=== PATIENT | female | born 2000 | race Caucasian/White ===

== ENCOUNTER 2023-05-17 19:44 | Emergency (ER) | payer BC, SELFPAY ==
[2023-05-17 20:04] VITALS: BP 117/82; PULSE 105; RESP 20; TEMP 39.3; O2SAT 98; BMI 26.6
--- NOTE | 2023-05-17 20:28 | ED_ITS ---
HPI - General Adult General Chief complaint: Urogenital Problems, Female Stated complaint: poss uti,fever Time Seen by Provider: 05/17/23 20:03 History of Present Illness HPI narrative: This 23-year-old female comes in reporting generalized malaise with aches and pains and has some chapped lips. She arrives with a fever at 102.8? F. her pulse is also elevated at 105 per minute. She does not report any upper respiratory symptoms. She does not have cough or shortness of breath. She states that she has had some increased urine frequency but no pain when passing urine. She was not feeling so well over the last several days but developed a fever today. Related Data Home Medications Medication Instructions Recorded Confirmed pregabalin .ROUTE 05/17/23 sertraline 100 mg tablet (Zoloft) 100 mg PO DAILY 05/17/23 05/17/23 Allergies Allergy/AdvReac Type Severity Reaction Status Date / Time Penicillins Allergy Mild Hives Verified 05/17/23 20:03 Review of Systems Status of ROS: Reports: 10 or more systems reviewed and unremarkable except as noted in History and below Narrative: Constitutional: No weight gain or loss. Fever started today. Eyes: No discharge. No vision changes. HENT: No congestion, no sore throat, no ear pain. Cardiovascular: No chest pain, no palpitations. Respiratory: No shortness of breath, no wheezes, no cough. Gastrointestinal: No abdominal pain, no vomiting, no diarrhea. Genitourinary: No hematuria. Musculoskeletal: Normal range of motion. Skin: No rashes, no pruritis. Neurological: No dizziness, weakness, sensory change, speech change. Endo/Heme/Allergies: No bruising or bleeding. No polydipsia. Pysch: no suicidality, no anxiety, no insomnia. All other systems reviewed and are negative. PFSH PFSH Social History Do you use any of these nicotine containing products: None Non-prescribed substance use: denies use Exam Narrative: Exam Narrative: Constitutional: Well-developed, well-nourished. HEENT: Normocephalic, atraumatic. Neck: Normal range of motion. Nontender. Supple. Heart: Regular. No murmurs. Normal rate. Intact distal pulses. Lungs: Clear to auscultation. No chest discomfort. No wheezes, rhonchi, or rales. Abdomen: Normal bowel sounds. Nontender. No rebound tenderness. Genitalia: Deferred. Back: No midline tenderness. Normal range of motion. Extremities: Normal range of motion. No injury. Skin: Intact. No rash. Warm. No erythema or pallor. She has dry chapped lips. Neurologic: No altered sensation. No weakness. Alert and oriented. Psychiatric: No suicidality. No anxiety or depression. No insomnia. Nursing notes and vitals signs are reviewed. Const: Vital Signs, click to edit/add: Vital Signs - 24 hr 05/17/23 20:04 05/17/23 22:07 05/17/23 22:47 Temperature 102.8 F H 99.7 F H 99.7 F H Pulse Rate [Pulse Oximeter] 105 H 74 Respiratory Rate 20 16 Blood Pressure [Ri ght Upper Arm] 117/82 117/67 Pulse Oximetry 98 97 Oxygen Delivery Me thod Room Air Room Air 05/17/23 22:47 Temperature 99.7 F H Pulse Rate [Pulse Oximeter] Respiratory Rate Blood Pressure [Ri ght Upper Arm] Pulse Oximetry Oxygen Delivery Me thod Course Vital Signs Vital signs: Initial Vital Signs Temperature 102.8 F H 05/17/23 20:04 Temperature Source Temporal Artery Scan 05/17/23 20:04 Pulse Rate 105 H 05/17/23 20:04 Respiratory Rate 20 05/17/23 20:04 Blood Pressure 117/82 05/17/23 20:04 Blood Pressure Mean 93 05/17/23 20:04 Blood Pressure Position Sitting 05/17/23 20:04 Pulse Oximetry 98 05/17/23 20:04 Oxygen Delivery Method Room Air 05/17/23 20:04 Vital Signs Temperature 102.8 F H 05/17/23 20:04 Pulse Rate 105 H 05/17/23 20:04 Respiratory Rate 20 05/17/23 20:04 Blood Pressure 117/82 05/17/23 20:04 Pulse Oximetry 98 05/17/23 20:04 Oxygen Delivery Method Room Air 05/17/23 20:04 Temperature 99.7 F H 05/17/23 22:47 Pulse Rate 74 05/17/23 22:07 Respiratory Rate 16 05/17/23 22:07 Blood Pressure 117/67 05/17/23 22:07 Pulse Oximetry 97 05/17/23 22:07 Oxygen Delivery Method Room Air 05/17/23 22:07 Medications Administered Medications: Discontinued Medications Generic Name Dose Route Start Last Admin Trade Name Selvin PRN Reason Stop Dose Admin Acetaminophen 1,000 mg 05/17/23 20:26 05/17/23 20:50 Acetaminophen 500 Mg Tablet PO 05/17/23 20:27 1,000 mg ONCE ONE Administration Sodium Chloride 1,000 mls @ 1,000 mls/hr 05/17/23 20:30 05/17/23 22:06 0.9 % Sodium Chloride 1000 Ml IV 05/17/23 21:29 Infused .Q1H AFUA Infusion Ceftriaxone Sodium 1 gm/ 100 mls @ 200 mls/hr 05/17/23 21:40 05/17/23 22:34 Sodium Chloride IVPB 05/17/23 21:41 Infused ONCE ONE Infusion Ketorolac Tromethamine 15 mg 05/17/23 20:26 05/17/23 20:51 Ketorolac 30 Mg/Ml Inj IVP 05/17/23 20:27 15 mg ONCE ONE Administration Medical Decision Making MDM Narrative Medical decision making narrative: This patient comes in with fever and generalized malaise. She also has mild tachycardia. She is tripping triggers for evaluation for possible sepsis. An IV was established where she did receive a total of 2 L of normal saline. Lactate level returns in normal range. Additionally her white count is in normal range. Actually her blood and urine all are reassuring and not indicating what her fever is related to. After blood cultures are acquired the patient did receive an IV dose of Rocephin 1000 mg. She states that she is feeling much better. She also did receive Tylenol 1000 mg. She is okay to be discharged home and received a prescription for Keflex. I advised her to use [id number] medicines also as needed and directed. Lab Data Labs: Lab Results 05/17/23 Range/Units 20:30 WBC 8.14 (4.50-11.00) K/uL RBC 4.64 (4.00-5.20) m/uL Hgb 13.6 (12.0-16.0) gm/dL Hct 40.2 (33.0-51.0) % MCV 87 (80-100) fL MCH 29 (26-34) pg MCHC 34 (32-36) gm/dL RDW Coeff of Sam 12.0 (11.5-15.5) % Plt Count 260 (140-440) K/uL Neut % (Auto) 79.3 H (42.0-72.0) % Lymph % (Auto) 10.0 L (20-44) % [place] % (Auto) 10.7 (0.0-11.0) % Eos % (Auto) 0.0 (0.0-7.0) % Baso % (Auto) 0.0 (0.0-3.0) % Neut # (Auto) 6.50 (1.7-7.0) K/uL Lymph # (Auto) 0.80 L (0.90-2.90) K/uL [place] # (Auto) 0.90 (0.00-0.90) K/UL Eos # (Auto) 0.00 (0.00-0.50) K/uL Baso # (Auto) 0.00 (0.00-0.30) K/uL Abs Immat Gran (auto) 0.00 (0.00-0.30) K/uL Imm/Tot Granulo (auto) 0.0 % Sodium 136 (135-149) mmol/L Potassium 4.0 (3.6-5.1) mmol/L Chloride 102 (96-114) mmol/L Carbon Dioxide 25 (20-32) mmol/L Anion Gap 9 (7-15) mEq/L BUN 12 (5-24) mg/dL Creatinine 0.6 (0.5-1.5) mg/dL Estimated Creat Clear 147.10 Estimated GFR 129 ml/min Glucose 113 (60-115) mg/dL Lactate 0.9 (0.5-1.9) mmol/L Calcium 9.4 (8.4-10.6) mg/dL C-Reactive Protein 1.9 H (0.5-1.0) mg/dL Urine Color Yellow (Yellow) Urine Appearance Clear (Clear) Urine pH 8.5 (5.0-8.5) Ur Specific [place] 1.020 (1.000-1.030) Urine Protein Negative (Negative) Urine Glucose (UA) Negative (Negative) Urine Ketones Negative (Negative) Urine Blood Trace-intact A (Negative) Urine Nitrite Negative (Negative) Urine Bilirubin Negative (Negative) Urine Urobilinogen 0.2 (0.2-1.0) Ur Leukocyte Esterase Trace A (Negative) Urine RBC 2-5 A (0-2) Urine WBC 2-5 (0-5) Ur Squamous Epith Cells Few (None-Few) Urine Bacteria None (None) SARS-CoV-2 (PCR) Negative SARS-CoV-2 (Negative) Influenza Type A (PCR) Negative PCR FLU A (Negative) Influenza Type B (PCR) Negative PCR FLU B (Negative) RSV (PCR) Negative PCR RSV (Negative) Discharge Plan Discharge Clinical Impression: Fever Patient Disposition: Home, Self-Care Condition: Improved Additional Instructions: Take medication as prescribed. Follow up with MD or return if worsening. Use [id number] medicines also as needed and directed. Prescriptions: No Action sertraline [Zoloft] 100 mg tablet 100 mg PO DAILY pregabalin .ROUTE Follow Up/Referrals: Provider,Not a Local [Primary Care Provider] - Stand Alone Forms: [employer] Info Instructions
[2023-05-17 20:48] LABS: Appearance Urine Clear (Clear); Bilirubin Urine Negative (Negative); Blood Urine Trace-intact (Negative); Color Urine Yellow (Yellow); Glucose Urine Negative (Negative); Ketones Urine Negative (Negative); Lactate* 0.9 mmol/L (0.5-1.9); Leukocyte Esterase Urine Trace (Negative); Nitrite Urine Negative (Negative); Protein Urine Negative (Negative); Urobilinogen Urine 0.2 (0.2-1.0); pH Urine 8.5 (5.0-8.5)
[2023-05-17 20:49] LABS: Hematocrit 40.2 % (33.0-51.0); Hemoglobin* 13.6 gm/dL (12.0-16.0); Mean Corpuscular HGB Conc 34 gm/dL (32-36); Mean Corpuscular Hemoglobin 29 pg (26-34); Mean Corpuscular Volume 87 fL (80-100); Monocytes Percent Auto 10.7 % (0.0-11.0); Neutrophils Percent Auto 79.3 % (42.0-72.0); Platelet Count* 260 K/uL (140-440); Red Blood Count 4.64 m/uL (4.00-5.20); Slide Review Reflex No; White Blood Count* 8.14 K/uL (4.50-11.00)
[2023-05-17] MEDS: ACETAMINOPHEN 500 MG TABLET 1000 MG PO (20:50)
[2023-05-17] MEDS: KETOROLAC 30 MG/ML inj 15 MG IVP (20:51)
[2023-05-17] MEDS: 0.9 % SODIUM CHLORIDE 1000 ml 1,000 ML IV (20:51)
[2023-05-17 20:59] LABS: Squamous Epithelial Cell Urine Few (None-Few)
[2023-05-17 21:04] LABS: Chloride* 102 mmol/L (96-114); Sodium* 136 mmol/L (135-149)
[2023-05-17 21:07] LABS: Anion Gap 9 mEq/L (7-15); Blood Urea Nitrogen* 12 mg/dL (5-24); Carbon Dioxide* 25 mmol/L (20-32); Creatinine* 0.6 mg/dL (0.5-1.5); Estimated Glomerular Filt Rate 129 ml/min
[2023-05-17 21:08] LABS: Calcium* 9.4 mg/dL (8.4-10.6); Glucose* 113 mg/dL (60-115)
[2023-05-17 21:10] LABS: C Reactive Protein* 1.9 mg/dL (0.5-1.0)
[2023-05-17 21:32] LABS: PCR FLU A Negative PCR FLU A (Negative); PCR FLU B Negative PCR FLU B (Negative); PCR RSV Negative PCR RSV (Negative); SARS PCR* Negative SARS-CoV-2 (Negative)
[2023-05-17] MEDS: cefTRIAXone 1 GM in 0.9 % SODIUM CHLORIDE Mini-bag 100 ML IVPB (21:44)
[2023-05-17 22:07] VITALS: BP 117/67; PULSE 74; RESP 16; TEMP 37.6; O2SAT 97
[2023-05-17 22:47] VITALS: TEMP 37.6
== END 2023-05-17 23:19 | disposition home or self-care (01) ==
PROVIDERS: Emergency Provider Emergency Medicine Emergency Medical Services
DX: R50.9 Fever, unspecified (principal)
CPT/HCPCS: 36415; 80048; 81001; 83605; 85025; 86140; 87040; 87086; 87631; 96365; 96375; 99284; A9270; J0696; J1885; J7030

== ENCOUNTER 2024-05-22 11:47 | Emergency (ER) | payer BC, SELFPAY ==
--- OUTSIDE RECORDS SUMMARY | 2024-05-22 11:48 | XMS_ITS | Clinical Summary ---
Author Organization [facility] Address [address] [place] [id number] Care Team Providers Care Stunt Woman Name Role Phone Pcp, No Primary Care Provider Unavailabl e Allergies Active Allergy Reactions Criticality Noted Date Comments Penicillins Hives 04/24/2024 Medications sertraline (ZOLOFT) 100 mg tablet 200 mg. 2 Active dextroamphetami ne sulfate (DEXEDRINE; DEXTROSTAT; ZENZEDI) 5 mg tablet 7.5 mg. 2 Active albuterol HFA (PRO-AIR; VENTOLIN; PROVENTIL) 90 mcg/actuation inhaler 2 Active Flovent HFA 110 mcg/actuation inhaler 1 04/24/19 25 Discontinue d(*Medicati on adjustment) doxycycline monohydrate 100 mg tabletIndicatio ns:Acute otitis media, bilateral Take 1 Tablet (100 mg) by mouth two times daily for 7 days. 14 Tablet 5 05/01/19 25 predniSONE (DELTASONE) 20 mg tabletIndicatio ns:Acute non-recurrent frontal sinusitis,Acute otitis media, bilateral Take 2 Tablets (40 mg) by mouth once daily for 5 days. 10 Tablet 5 04/29/19 25 Flovent HFA 110 mcg/actuation inhalerIndicati ons:Acute non-recurrent frontal sinusitis Inhale 2 Puffs by mouth two times daily. 12 g 5 04/24/19 25 Discontinue d(*Med complete/Re gimen complete/Le ariana of care change) fluticasone (50 mcg per actuation) nasal solution (FLONASE)Indica tions:Acute non-recurrent frontal sinusitis Inhale 2 Sprays in both nostrils once daily for 10 days. 16 g 5 05/04/19 25 Active Problems No known active problems Encounters Date Type Department Care Team Description 05/12/2024 Patient Outreach [facility] Care Management - Care Management Navigation/[facility] [address] [place] [address] Daniel [facility] 04/24/2024 2:00 PM TANK INSULATOR RUBBER Office Visit [facility] [address] [place] [address] Rafia Yepez NP Ear Problem; Sinus Problem; Conjunctivitis 04/24/2024 Travel from Last 3 Months Immunizations Immunization Administration Dates Next Due Influenza, IIV4 12/30/2020 Influenza, IIV4 (=>6mos) MDV 11/23/2019 Social History Tobacco Use Types Packs/Day Years Used Date Smoking Tobacco: Never Smokeless Tobacco: Never Tobacco Cessation:Counseling Given: Yes Alcohol Use Standard Drinks/Week Comments Yes 0 (1 standard drink = 0.6 oz pur e alcohol) social use Social Connections Answer Date Recorded Do you often feel lonely or isolated from those around you? 0 04/24/2024 Financial Resource Strain Answer Date R ecorded Difficulty of Paying Living Expenses Not on file 04/24/2024 Difficulty of Paying Living Expenses 3 04/24/2024 Food Insecurity Answer Date Recorded Do you worry your food will run out before you are able to buy more? 2 04/24/2024 Transportation Needs Answer Date Record ed Does lack of transportation keep you from medica l appointments? 1 04/24/2024 Does lack of transportation keep you from work, meetings or getting things that you need? 1 04/24/2024 Housing Stability Answer Date Recorded What is your housing situation today? 1 04/24/2024 Utilities Answer Date Recorded Do you have trouble paying f or utilities (for example, heat, electricity, water, phone)? 2 04/24/2024 Comments No Sex and Gender Information Value Date Recorded Sex Assigned at Not on file Legal Sex Female 10:27 AM CDT Gender Identity Not on file Sexual Orientation Not on file Obstetrics History Para Term AB IAB SAB Ectopic Multiple Livin g Live Births 0 0 0 0 0 0 0 0 0 0 0 Last Filed Vital Signs Vital Sign Reading Time Taken Comments Blood Pressure 111/59 04/24/2024 3:21 PM TANK INSULATOR RUBBER Pulse 85 04/24/2024 3:21 PM TANK INSULATOR RUBBER Temperature 36.9 C (98.5 F) 04/24/2024 3:21 PM TANK INSULATOR RUBBER Respiratory Rate 18 04/24/2024 3:21 PM TANK INSULATOR RUBBER Oxygen Saturation 98% 04/24/2024 3:21 PM TANK INSULATOR RUBBER Inhaled Oxygen Concentration - - Weight 77.4 kg (170 lb 9.6 oz) 04/24/2024 3:21 P M TANK INSULATOR RUBBER Height - - Body Mass Index - - Plan of Treatment Health Maintenance Due Date Last Done Comments Tdap 02/04/2011 Depression screening for age 12+ 2012 HPV series for age 9-26 (1 - 3-dose series) 02/04/2015 BMI (ht and wt on same day) for age 18+ 02/04/2018 Hepatitis C screening for ag e 18-79 02/04/2018 Tetanus booster 2020 Pap test for age 21-65 02/04/2021 Chlamydia for age 16-24 08/01/2022 08/01/2021 COVID-19 vaccine series ( season) 2023 06/29/2020, 06/08/2020 Influenza Vaccine (#1) 2023 , 11/23/2019 HIV for age 15-65 Completed 08/01/2021 Pneumococcal series for age 6-49 Aged Out No longer eligible b ased on patient's age to complete this topic Procedures Procedure Name Priority Date/Time Associated Diagnosis Comments GC CHLAMYDIA TRACH PROBE Routine 08/01/2021 11:24 AM CDT Screening examination for STD (sexually transmitted disease) ANTI HIV 1/2 Routine 08/01/2021 11:20 AM CDT Screening examination for STD (sexually transmitted disease) from Last 3 Months or Most Recently Relevant to Health Maintenance Results * GC CHLAMYDIA - Urine (08/01/2021 11:24 AM CDT) CHLAMYDIA PROBE Negative 7:26 PM CDT [facility] N GONORRHOEAE PROBE Negative 08/01/2021 7:26 PM CDT [facility] Other URINE SPECIMEN / Unknown Non-Blood / Unknown 08/01/2021 11:24 AM CDT 08/01/2021 11:24 AM CDT us Adejunie Monahan DO MICROBIOLOGY Final Result [facility] [address] [place] [address], [place] * ANTI HIV 1/2 (08/01/2021 11:20 AM CDT) HIV-1/HIV-2 ANTIBODY Non-Reacti ve Non-Reacti ve 08/01/2021 4:56 PM CDT [facility] Comment:HIV-1 p24 and HIV-1/ HIV-2 Ab not detected. Blood BLOOD SPECIMEN / Unknown Venipuncture / Unknown 08/01/2021 11:20 AM CDT 08/01/2021 11:21 AM CDT us Di Monahan DO SEND OUTS Final Result [facility] [address] [place] [address], [place] from Last 3 Months or Most Recently Relevant to Health Maintenance Care Teams Stunt Woman Relationship Specialty Start Date End Date Pcp, No . PCP - General 07/23/21
[2024-05-22 12:01] VITALS: BP 115/74; PULSE 89; RESP 20; TEMP 37.3; O2SAT 100; BMI 26.6
--- NOTE | 2024-05-22 12:06 | ED.GENADULT ---
HPI - General Adult General Chief complaint: Nausea/Vomiting Stated complaint: nausea/diarrhea Time Seen by Provider: 05/22/24 11:48 History of Present Illness HPI narrative: Patient is a 24-year-old woman who comes in today with 12 hour history of nausea vomiting diarrhea. She has had no fevers no chills no night sweats no chest pain no shortness of breath. She has had no recent travel and no sick contacts. She has had no blood in her vomitus or stool. She has had no rashes no bruising no stiff neck no headache. She has been unable to maintain her fluid intake and comes in today feeling dehydrated. Related Data Home Medications ?Medication ?Instructions ?Recorded ?Confirmed pregabalin PO 05/17/23 sertraline 100 mg tablet (Zoloft) 100 mg PO DAILY 05/17/23 05/22/24 albuterol sulfate 90 mcg/actuation inhalation 05/22/24 aerosol inhaler dextroamphetamine-amphetamine 10 1 tab PO 3XD 05/22/24 05/22/24 mg tablet Allergies Allergy/AdvReac Type Severity Reaction Status Date / Time Penicillins Allergy Mild Hives Verified 05/22/24 11:56 Review of Systems Status of ROS: Reports: 10 or more systems reviewed and unremarkable except as noted in History and [facility] Social History Do you use any of these nicotine containing products: None Non-prescribed substance use: marijuana (any form) Exam Narrative: Exam Narrative: EXAM GENERAL: Patient appears comfortable and well. EYES: No scleral icterus. LYMPH: No supraclavicular or cervical lymphadenopathy. SKIN: Visible skin seen during exam normal or with benign process only. EXT: No dependent lower extremity pedal edema. HEART: Regular rate and rhythm with no murmurs, rubs, or gallops. LUNGS: Clear to auscultation bilaterally with no crackles or wheezes. ABD: Soft, non tender, non distended. PSYCH: Good eye contact, speech is not pressured. Const: Vital Signs, click to edit/add: Vital Signs - 24 hr 05/22/24 12:01 Temperature 99.1 F Pulse Rate [Pulse Oximeter] 89 Respiratory Rate 20 Blood Pressure [Ri ght Upper Arm] 115/74 Pulse Oximetry 100 Oxygen Delivery Me thod Room Air Course Course ED Course: Patient seen examined. Normal saline given 4 mg of Zofran given CMP CBC lipase UA pending. Vital Signs Vital signs: Initial Vital Signs Temperature 99.1 F 05/22/24 12:01 Temperature Source Temporal Artery Scan 05/22/24 12:01 Pulse Rate 89 05/22/24 12:01 Respiratory Rate 20 05/22/24 12:01 Blood Pressure 115/74 05/22/24 12:01 Blood Pressure Mean 87 05/22/24 12:01 Blood Pressure Position Sitting 05/22/24 12:01 Pulse Oximetry 100 05/22/24 12:01 Oxygen Delivery Method Room Air 05/22/24 12:01 Vital Signs Temperature 99.1 F 05/22/24 12:01 Pulse Rate 89 05/22/24 12:01 Respiratory Rate 20 05/22/24 12:01 Blood Pressure 115/74 05/22/24 12:01 Pulse Oximetry 100 05/22/24 12:01 Oxygen Delivery Method Room Air 05/22/24 12:01 Temperature 99.1 F 05/22/24 12:01 Pulse Rate 89 05/22/24 12:01 Respiratory Rate 20 05/22/24 12:01 Blood Pressure 115/74 05/22/24 12:01 Pulse Oximetry 100 05/22/24 12:01 Oxygen Delivery Method Room Air 05/22/24 12:01 Medications Administered Medications: Generic Name Dose Route Start Last Admin Trade Name Freq PRN Reason Stop Dose Admin Sodium Chloride 500 mls @ 500 mls/hr 05/22/24 13:00 05/22/24 13:08 0.9 % Sodium Chloride 500 Ml IV 05/22/24 13:59 500 mls/hr .Q1H ONE Administration Ondansetron HCl 4 mg 05/22/24 12:05 05/22/24 12:21 Ondansetron 2 Mg/Ml Inj IVP 4 mg ONCE PRN Administration Discontinued Medications Generic Name Dose Route Start Last Admin Trade Name Freq PRN Reason Stop Dose Admin Sodium Chloride 1,000 mls @ 1,000 mls/hr 05/22/24 12:05 05/22/24 13:08 0.9 % Sodium Chloride 1000 Ml IV 05/22/24 13:04 Infused .Q1H AFUA Infusion Medical Decision Making MDM Narrative Medical decision making narrative: Patient presents with nausea vomiting diarrhea. Labs are unremarkable. She feels better with 1/2 L of normal saline. I also treated with Zofran. Differential diagnosis includes but not limited to gastroenteritis small-bowel obstruction enteritis inflammatory bowel disease cholecystitis appendicitis. This time will treat asymptomatically to advance her diet activity as tolerated with Zofran as needed follow-up with primary care as needed. Lab Data Labs: Lab Results 05/22/24 Range/Units 12:10 WBC 9.29 (4.50-11.00) K/uL RBC 4.83 (4.00-5.20) m/uL Hgb 14.3 (12.0-16.0) gm/dL Hct 42.0 (33.0-51.0) % MCV 87 (80-100) fL MCH 30 (26-34) pg MCHC 34 (32-36) gm/dL RDW Coeff of Sam 12.5 (11.5-15.5) % Plt Count 281 (140-440) K/uL Neut % (Auto) 91.4 H (42.0-72.0) % Lymph % (Auto) 3.6 L (20-44) % [place] % (Auto) 4.8 (0.0-11.0) % Eos % (Auto) 0.0 (0.0-7.0) % Baso % (Auto) 0.0 (0.0-3.0) % Neut # (Auto) 8.50 H (1.7-7.0) K/uL Lymph # (Auto) 0.30 L (0.90-2.90) K/uL [place] # (Auto) 0.40 (0.00-0.90) K/UL Eos # (Auto) 0.00 (0.00-0.50) K/uL Baso # (Auto) 0.00 (0.00-0.30) K/uL Abs Immat Gran (auto) 0.02 (0.00-0.30) K/uL Imm/Tot Granulo (auto) 0.2 % Sodium 136 (135-149) mmol/L Potassium 3.6 (3.6-5.1) mmol/L Chloride 103 (96-114) mmol/L Carbon Dioxide 22 (20-32) mmol/L Anion Gap 11 (7-15) mEq/L BUN 15 (5-24) mg/dL Creatinine 0.6 (0.5-1.5) mg/dL Estimated Creat Clear 151.10 Estimated GFR 128 ml/min Glucose 120 H (60-115) mg/dL Calcium 8.9 (8.4-10.6) mg/dL Total Bilirubin 1.5 (0.1-1.5) mg/dL AST 21 (12-35) U/L ALT 18 (4-35) U/L Alkaline Phosphatase 47 (40-150) U/L Total Protein 6.9 (6.0-8.3) g/dL Albumin 4.3 (3.3-5.0) g/dL Lipase 34 (23-300) U/L Discharge Plan Discharge Clinical Impression: Gastroenteritis Patient Disposition: Home, Self-Care Condition: Stable Instructions: Gastroenteritis (ED) Additional Instructions: Zofran as directed Tylenol Motrin Rest Fluids Activity Level: No Restrictions Discharge Diet: Regular Prescriptions: No Action dextroamphetamine-amphetamine 10 mg tablet 1 tab PO 3XD albuterol sulfate 90 mcg/actuation HFA aerosol inhaler inhalation sertraline [Zoloft] 100 mg tablet 100 mg PO DAILY pregabalin PO Follow Up/Referrals: Provider,Not a Local [Primary Care Provider] - Stand Alone Forms: [employer] Info Instructions
[2024-05-22] MEDS: 0.9 % SODIUM CHLORIDE 1000 ml 1,000 ML IV (12:21)
[2024-05-22] MEDS: ONDANSETRON 2 MG/ML inj 4 MG IVP (12:21)
[2024-05-22 12:24] LABS: Hemoglobin* 14.3 gm/dL (12.0-16.0); Immature Granulocytes Abs Auto 0.02 K/uL (0.00-0.30); Immature Granulocytes Pct Auto 0.2 %; Lymphocytes Percent Auto 3.6 % (20-44); Mean Corpuscular HGB Conc 34 gm/dL (32-36); Mean Corpuscular Hemoglobin 30 pg (26-34); Mean Corpuscular Volume 87 fL (80-100); Monocytes Percent Auto 4.8 % (0.0-11.0); Neutrophils Percent Auto 91.4 % (42.0-72.0); Platelet Count* 281 K/uL (140-440); RDW Coefficient of Variation % 12.5 % (11.5-15.5); Red Blood Count 4.83 m/uL (4.00-5.20); White Blood Count* 9.29 K/uL (4.50-11.00)
[2024-05-22 12:43] LABS: Albumin* 4.3 g/dL (3.3-5.0)
[2024-05-22 12:44] LABS: Chloride* 103 mmol/L (96-114); Potassium* 3.6 mmol/L (3.6-5.1); Slide Review Reflex No; Sodium* 136 mmol/L (135-149)
[2024-05-22 12:46] LABS: Alkaline Phosphatase* 47 U/L (40-150); Anion Gap 11 mEq/L (7-15); Aspartate Amino Transferase* 21 U/L (12-35); Bilirubin Total* 1.5 mg/dL (0.1-1.5); Blood Urea Nitrogen* 15 mg/dL (5-24); Carbon Dioxide* 22 mmol/L (20-32); Creatinine* 0.6 mg/dL (0.5-1.5); Estimated Glomerular Filt Rate 128 ml/min; Total Protein* 6.9 g/dL (6.0-8.3)
--- OUTSIDE RECORDS SUMMARY | 2024-05-22 12:46 | XMS_ITS | Clinical Summary ---
Author Organization [facility] Address [address] [place] [id number] Care Team Providers Care Outbound Supervisor Name Role Phone Pcp, No Primary Care [...] Department Care Team Description 05/12/2024 Patient Outreach [facility] Care Management - Care Management Navigation/[facility] [address] [place] [address] Daniel Larson [facility] Navigation 04/24/2024 2:00 PM GEOPHYSICAL PROSPECTING PERMIT AGENT Office Visit [facility] [address] [place] [address] Rafia Yepez NP Ear Problem; Sinus Problem; [...] Comments Blood Pressure 111/59 04/24/2024 3:21 PM GEOPHYSICAL PROSPECTING PERMIT AGENT Pulse 85 04/24/2024 3:21 PM GEOPHYSICAL PROSPECTING PERMIT AGENT Temperature 36.9 C (98.5 F) 04/24/2024 3:21 PM GEOPHYSICAL PROSPECTING PERMIT AGENT Respiratory Rate 18 04/24/2024 3:21 PM GEOPHYSICAL PROSPECTING PERMIT AGENT Oxygen Saturation 98% 04/24/2024 3:21 PM GEOPHYSICAL PROSPECTING PERMIT AGENT Inhaled Oxygen Concentration - - Weight 77.4 kg (170 lb 9.6 oz) 04/24/2024 3:21 P M GEOPHYSICAL PROSPECTING PERMIT AGENT Height - - Body Mass Index - [...] CDT) CHLAMYDIA PROBE Negative 7:26 PM CDT [facility] N GONORRHOEAE PROBE Negative 08/01/2021 7:26 PM CDT [facility] Other URINE SPECIMEN / Unknown Non-Blood / Unknown 08/01/2021 11:24 AM CDT 08/01/2021 11:24 AM CDT us Adejunie Monahan DO MICROBIOLOGY Final Result [facility] [address] [place] [address], [place] * ANTI HIV 1/2 (08/01/2021 11:20 AM CDT) HIV-1/HIV-2 ANTIBODY Non-Reacti ve Non-Reacti ve 08/01/2021 4:56 PM CDT [facility] Comment:HIV-1 p24 and HIV-1/ HIV-2 Ab not detected. Blood BLOOD SPECIMEN / Unknown Venipuncture / Unknown 08/01/2021 11:20 AM CDT 08/01/2021 11:21 AM CDT us Di Monahan DO SEND OUTS Final Result [facility] [address] [place] [address], [place] from Last 3 Months or Most Recently Relevant to Health Maintenance Care Teams Outbound Supervisor Relationship Specialty Start Date End Date Pcp, No . PCP - General 07/23/21
[2024-05-22 12:47] LABS: Alanine Aminotransferase* 18 U/L (4-35); Calcium* 8.9 mg/dL (8.4-10.6); Glucose* 120 mg/dL (60-115); Lipase* 34 U/L (23-300)
[2024-05-22] MEDS: 0.9 % SODIUM CHLORIDE 500 ML 500 ML IV (13:08)
--- NOTE | 2024-05-22 19:49 | ED.NURSE ---
pt returned to the ED after not being able to get medication at [facility] due to falling asleep. currently in ED re-entered pt prescription into [facility]
== END 2024-05-22 14:00 | disposition home or self-care (01) ==
PROVIDERS: Emergency Provider Internal Medicine
DX: K52.9 Noninfective gastroenteritis and colitis, unspecified (principal)
CPT/HCPCS: 36415; 80053; 81003; 83690; 85025; 96361; 96374; 99283; 99284; J2405; J7030